=== PATIENT | male | born 1945 | race Caucasian/White ===

== ENCOUNTER → 2016-08-26 | Emergency (ER) | payer MEDICARE ==
[~2016-08-26] MED LIST: LOSARTAN POTASSIUM 25 MG TABLET PO ONE; amLODIPine BESYLATE 5 MG TABLET (FP) ONE; amLODIPine BESYLATE 5 MG TABLET (FP) PO ONE
--- NOTE | 2016-08-26 23:44 | PDOC ---
History of Present Illness - General History Source: Patient Exam Limitations: No Limitations - History of Present Illness Initial Comments: 08/26/16 23:51 The patient is a 71-year-old male, with a significant past medical history of HTN and hyperlipidemia, who presents to the ED with high blood pressure today. The patient states that he took his BP medication this morning and decided to take a second pill 2 hours prior to presentation since he does not have his prescription for amlodipine. Pt checked his BP and noted it to be high even after taking his medication so he decided to report to the ED for further evaluation. Pts BP was noted to be 194/111 while in the ED. He also reports having lasik surgery in his left eye today at 2 PM and he is now experiencing a mild headache. Pt also reports taking an aspirin and his hypertension medication tonight. On exam, pt does admit to be very gassy. He denies any chest pain or shortness of breath. He denies any fever, chills, nausea, vomiting, diarrhea, or abdominal pain. PCP: Dr. French <Yeny Mckee - Last Filed: 08/27/16 00:11> - General History Source: Patient, Old Records Exam Limitations: No Limitations <Madalyn Olivera - Last Filed: 08/27/16 01:16> - General Chief Complaint: Blood Pressure Problem Stated Complaint: HIGH BLOOD PRESSURE Time Seen by Provider: 08/26/16 23:35 Past History <Yeny Mckee - Last Filed: 08/27/16 00:11> - Past Medical History HTN: Yes Hypercholesterolemia: Yes - Psycho/Social/Smoking Cessation Hx Anxiety: No Suicidal Ideation: No Smoking History: Never smoked Have you smoked in the past 12 months: No Hx Alcohol Use: No Substance Use Type: None <Madalyn Olivera - Last Filed: 08/27/16 01:16> - Past Medical History Allergies/Adverse Reactions: Allergies Allergy/AdvReac Type Severity Reaction Status Date / Time No Known Allergies Allergy Verified 08/26/16 23:20 Home Medications: Ambulatory Orders Amlodipine Besylate 5 mg PO DAILY #30 tablet 08/27/16 Losartan Potassium 25 mg PO DAILY 08/27/16 Review of Systems - Review of Systems Able to Perform ROS?: Yes Comments:: 08/26/16 23:52 CONSTITUTIONAL: Absent: fever, chills, diaphoresis, generalized weakness, malaise, loss of appetite HEENT: Absent: rhinorrhea, nasal congestion, throat pain, throat swelling, difficulty swallowing, mouth swelling, ear pain, eye pain, visual Changes CARDIOVASCULAR: Absent: chest pain, syncope, palpitations, irregular heart rate, lightheadedness , peripheral edema RESPIRATORY: Absent: cough, shortness of breath, dyspnea with exertion, orthopnea, wheezing, stridor, hemoptysis GASTROINTESTINAL: Present: indigestion Absent: abdominal pain, abdominal distension, nausea, vomiting, diarrhea, constipation, melena, hematochezia GENITOURINARY: Absent: dysuria, frequency, urgency, hesitancy, hematuria, flank pain, genital pain MUSCULOSKELETAL: Absent: myalgia, arthralgia, joint swelling SKIN: Absent: rash, itching, pallor HEMATOLOGIC/IMMUNOLOGIC: Absent: easy bleeding, easy bruising, lymphadenopathy, frequent infections ENDOCRINE: Absent: unexplained weight gain, unexplained weight loss, heat intolerance, cold intolerance NEUROLOGIC: Present: headache Absent: focal weakness or paresthesias, dizziness, unsteady gait, seizure, mental status changes, bladder or bowel incontinence PSYCHIATRIC: Absent: anxiety, depression, suicidal or homicidal ideation, hallucinations. <Yeny Mckee - Last Filed: 08/27/16 00:11> *Physical Exam - Vital Signs Last Vital Signs Temp Pulse Resp BP Pulse Ox 97.7 F 63 18 194/111 98 08/26/16 23:17 08/26/16 23:17 08/26/16 23:17 08/26/16 23:17 08/26/16 23:17 - Physical Exam Comments: 08/26/16 23:54 GENERAL: Well developed, well nourished. Awake and alert. No acute distress. HEENT: +Scleral injection of left eye with a little inflammation of eyelid. Normocephalic, atraumatic. PERRLA, EOMI. No conjunctival pallor. Moist mucous membranes. Oropharynx is clear. NECK: Supple. Full ROM. No JVD. Carotid pulses 2+ and symmetric, without bruits. No thyromegaly. No lymphadenopathy. CARDIOVASCULAR: Regular rate and rhythm. No murmurs, rubs, or gallops. Distal pulses are 2+ and symmetric. PULMONARY: No evidence of respiratory distress. Lungs clear to auscultation bilaterally. No wheezing, rales or rhonchi. ABDOMINAL: Soft. Non-tender. Non-distended. No rebound or guarding. No organomegaly. Normoactive bowel sounds. MUSCULOSKELETAL Normal range of motion at all joints. No bony deformities or tenderness. No CVA tenderness. EXTREMITIES: No cyanosis. No clubbing. No edema. No calf tenderness. SKIN: Warm and dry. Normal capillary refill. No rashes. No jaundice. NEUROLOGICAL: Alert, awake, appropriate. PSYCHIATRIC: Cooperative. Good eye contact. Appropriate mood and affect. <Yeny Mckee - Last Filed: 08/27/16 00:11> - Vital Signs Last Vital Signs Temp Pulse Resp BP Pulse Ox 97.7 F 63 18 194/111 98 08/26/16 23:17 08/26/16 23:17 08/26/16 23:17 08/26/16 23:17 08/26/16 23:17 <Madalyn Olivera - Last Filed: 08/27/16 01:16> ED Treatment Course - LABORATORY CBC & Chemistry Diagram: 08/27/16 00:28 08/27/16 00:28 <Madalyn Olivera - Last Filed: 08/27/16 01:16> Medical Decision Making - Medical Decision Making 08/27/16 00:02 71-year-old male with history of hypertension and high cholesterol semi- compliant with medications as he ran out of his amlodipine weeks ago and has not refilled the prescription presents to the emergency Department with complaints of elevated blood pressure. His blood pressure is elevated at 194/ 111. The patient is asymptomatic. Differential diagnosis includes but is not limited to: Hypertensive urgency, uncontrolled hypertension secondary to medication noncompliance. Plan: 1. Labs 2. EKG 3. Amlodipine 5 mg in the ED 4. Observe and reevaluate 08/27/16 01:15 Addendum: All labs were reviewed and are noted in the EMR. EKG showed sinus bradycardia with no acute ST-segment changes. He received Norvasc 5mg PO x 1 in the ED and his repeat BP was 176/79. The plan is to discharge the patient home, follow-up with PCp within the next week and return to the ED if Sx persist, worsen or new Sx arise. <Madalyn Olivera - Last Filed: 08/27/16 01:16> *DC/Admit/Observation/Transfer - Attestations Scribe Attestion: 08/26/16 23:55 Documentation prepared by Yeny Mckee, acting as medical certification specialist for Madalyn Olivera MD. <Yeny Mckee - Last Filed: 08/27/16 00:11> - Discharge Dispostion Admit: No - Attestations Physician Attestion: 08/27/16 00:04 I, Dr. Madalyn Olivera, attest that the scribes documentation that appears above has been prepared under my direction and personally reviewed by me in its entirety. I confirmed that the note above accurately reflects all work, treatment, procedures, and medical decision-making performed by me. <Madalyn Olivera - Last Filed: 08/27/16 01:16> Diagnosis at time of Disposition: HTN (hypertension) - Discharge Dispostion Disposition: HOME Condition at time of disposition: Stable - Prescriptions Prescriptions: Amlodipine Besylate 5 mg PO DAILY #30 tablet - Referrals Referrals: Refugio French MD [Primary Care Provider] - - Patient Instructions Printed Discharge Instructions: DI for High Blood Pressure Additional Instructions: Please follow-up with your primary care physician within the next week. You are being prescribed Norvasc (blood pressure medicine) 5mg--one tablet daily. Please take that medication in addition to your prescribed losartan. Return to the ED as needed.
[2016-08-27 00:42] LABS: BASOPHIL 0.8 % (0-2.0); EOSINOPHIL 4.6 % (0-4.5); MCH 27.2 pg (25.7-33.7); MCHC 32.6 g/dl (32.0-35.9); MEAN CELL VOLUME 83.3 fl (80-96); MEAN PLT VOLUME 8.9 fl (7.5-11.1); NEUTROPHILS 51.4 % (42.8-82.8); PLATELET COUNT 163 K/MM3 (134-434); RDW 12.9 % (11.9-15.9); WHITE BLOOD COUNT 6.7 K/mm3 (4.0-10.0)
[2016-08-27 01:06] LABS: ANION GAP 7 (8-16); CALCIUM 8.9 mg/dL (8.5-10.1); CO2 30 mmol/L (21-32); CREATININE 1.2 mg/dL (0.7-1.3); GLUCOSE,RANDOM 122 mg/dL (74-106); MAGNESIUM 2.5 mg/dL (1.8-2.4); PHOSPHOROUS 2.8 mg/dL (2.5-4.9)
[2016-08-27 01:10] LABS: TROPONIN I < 0.02 ng/ml (0.00-0.05)
[2016-08-27 01:42] VITALS: BP 175/80; PULSE 56; TEMP 98
--- NOTE | 2016-08-27 13:47 | EKG ---
Test Reason : Blood Pressure : / mmHG Vent. Rate : 059 BPM Atrial Rate : 059 BPM P-R Int : 148 ms QRS Dur : 090 ms QT Int : 414 ms P-R-T Axes : 071 049 044 degrees QTc Int : 409 ms SINUS BRADYCARDIA OTHERWISE NORMAL ECG NO PREVIOUS ECGS AVAILABLE Confirmed by CHANTELL ANTUNEZ, COTY ([id number]) on 08/27/2016 1:47:23 PM Referred By: Confirmed By:COTY ABDUL MD
== END | disposition home or self-care (01) ==
LOC: JER 23:14
DX: I10 Essential (primary) hypertension (principal); E78.5 Hyperlipidemia, unspecified; Z91.14 Patient's other noncompliance with medication regimen
CPT/HCPCS: 36415; 80048; 82550; 83735; 84100; 84484; 85025; 93005; 93010; 99282-25

== ENCOUNTER 2017-01-06 22:30 | Emergency (ER) | payer MEDICARE ==
[2017-01-06 22:37] VITALS: BP 155/102; PULSE 87; TEMP 97.4; BMI 24.6
[2017-01-07] MEDS ORDERED: ACETAMINOPHEN 500 MG TABLET (FP) PO ONE (00:53)
--- NOTE | 2017-01-07 01:24 | PDOC ---
History of Present Illness - General Chief Complaint: Blood Pressure Problem Stated Complaint: EVALUATION Time Seen by Provider: 01/07/17 00:18 - History of Present Illness Initial Comments: 01/07/17 01:15 The patient is a 71 year old male with history of hypertension, hyperlipidemia, recent left Lasik eye surgery who presents to the ED complaining of 1 day of left sided headache. The patient describes his headache as intermittent, localized behind the left eye and forehead, ranked 8/10. It was gradual in onset , with no thunderclap. It is not the worst headache of his life. He states he experienced a similar headache in August, also after undergoing Lasik eye surgery. He noted his blood pressure was elevated to approximately 160/100 today , prompting him to come to the ED for evaluation. He states he is normally 130/ 90. No fever or chills. No numbness, tingling, or focal weakness. NO neck pain. No chest pain or shortness of breath. No nausea, vomiting, or diarrhea. Past History - Past Medical History Allergies/Adverse Reactions: Allergies Allergy/AdvReac Type Severity Reaction Status Date / Time No Known Allergies Allergy Verified 01/06/17 22:37 Home Medications: Ambulatory Orders Amlodipine Besylate 5 mg PO DAILY #30 tablet 08/27/16 Amlodipine Besylate 5 mg PO DAILY #30 tablet 08/27/16 Losartan Potassium 25 mg PO DAILY 08/27/16 COPD: No HTN: Yes Hypercholesterolemia: Yes Other medical history: left eye blindness - Suicide/Smoking/Psychosocial Hx Smoking History: Never smoked Have you smoked in the past 12 months: No Hx Alcohol Use: No Substance Use Type: None Review of Systems - Review of Systems Comments:: 01/07/17 01:29 "GENERAL/CONSTITUTIONAL: No fever or chills. No weakness. HEAD, EYES, EARS, NOSE AND THROAT: +L eye redness. No ear pain or discharge. No sore throat. CARDIOVASCULAR: No chest pain or shortness of breath. RESPIRATORY: No cough, wheezing, or hemoptysis. GASTROINTESTINAL: No nausea, vomiting, diarrhea or constipation. GENITOURINARY: No dysuria, frequency, or change in urination. MUSCULOSKELETAL: No joint or muscle swelling or pain. No neck or back pain. SKIN: No rash NEUROLOGIC: +L headache. No vertigo, loss of consciousness, or change in strength/sensation. ENDOCRINE: No increased thirst. No abnormal weight change. HEMATOLOGIC/LYMPHATIC: No anemia, easy bleeding, or history of blood clots. ALLERGIC/IMMUNOLOGIC: No hives or skin allergy. " *Physical Exam - Vital Signs Last Vital Signs Temp Pulse Resp BP Pulse Ox 97.4 F L 87 18 155/102 99 01/06/17 22:33 01/06/17 22:33 01/06/17 22:33 01/06/17 22:33 01/06/17 22:33 - Physical Exam Comments: 01/07/17 01:30 "GENERAL: Awake, alert, and fully oriented, in no acute distress HEAD: No signs of trauma EYES: OS with conjunctival injection, EOMI, no pain with EOM, visual acuity normal both eyes ENT: Auricles normal inspection, hearing grossly normal, nares patent, oropharynx clear without exudates. Moist mucosa NECK: Nontender, no stepoffs, Normal ROM, supple, no lymphadenopathy, JVD, or masses LUNGS: Breath sounds equal, clear to auscultation bilaterally. No wheezes, and no crackles HEART: Regular rate and rhythm, normal S1 and S2, no murmurs, rubs or gallops ABDOMEN: Soft, nontender, normoactive bowel sounds. No guarding, no rebound. No masses EXTREMITIES: Normal range of motion, no edema. No clubbing or cyanosis. No cords, erythema, or tenderness NEUROLOGICAL: Cranial nerves II through XII intact. 5/5 strength and sensation in all extremities, Normal speech, normal gait SKIN: Warm, Dry, normal turgor, no rashes or lesions noted. " ED Treatment Course - RADIOLOGY Radiology Studies Ordered: Category Date Time Status HEAD CT WITHOUT CONTRAST [CT] Stat CT Scan 01/07/17 00:53 Ordered Medical Decision Making - Medical Decision Making 01/07/17 01:30 71 M with L eye pain and headache after Lasik 2 days ago. Likely procedure- related, as pt had similar headache after getting Lasik on his other eye. Pt has injected conjunctiva but no hyphema, no cells/flare, no pain with EOMI, and normal visual acuity, making eye infection unlikely. Pt does not have any red flags for headache such as fevers, neck pain, thunderclap, or neuro deficits. - Tylenol - F/u ophtho 01/07/17 02:03 Pt reassessed s/p tylenol, now with complete resolution of headache. BP rechecked, now 130s systolic. Pt denies any complaints at this time. Clinically stable for DC. *DC/Admit/Observation/Transfer Diagnosis at time of Disposition: Headache - Discharge Dispostion Disposition: HOME - Referrals - Patient Instructions Printed Discharge Instructions: DI for High Blood Pressure Additional Instructions: Call your call center professional for an appointment within 2-3 days to have your eye looked at again. If you experience worsening headache, eye pain, blurred vision, or any other concerning symptoms, return to the ER immediately. - Post Discharge Activity - Attestations Physician Attestion: 01/07/17 01:37 I, Dr. Benigno Heredia MD, attest that this document has been prepared under my direction and personally reviewed by me in its entirety. I further attest, that it accurately reflects all work, treatment, procedures and medical decision -making performed by me.
== END 2017-01-07 02:33 | disposition home or self-care (01) ==
LOC: JER 22:30
DX: I10 Essential (primary) hypertension (principal); E78.00 Pure hypercholesterolemia, unspecified; H54.40 Blindness, one eye, unspecified eye
CPT/HCPCS: 99281-25

== ENCOUNTER 2017-01-07 16:50 | Emergency (ER) | payer MEDICARE ==
--- NOTE | 2017-01-07 17:04 | PDOC ---
History of Present Illness - General Stated Complaint: NAUSEA/VOMITING Time Seen by Provider: 01/07/17 17:03 - History of Present Illness Initial Comments: 01/07/17 17:08 Mr. Driscoll is a 71 yo male w/ pmh of htn, hld, long standing left sided facial droop and recent left lasik eye surgery who presents c/o 2 day of left sided headache. He says that it is behind the left eye and shoots into his forehead with 8/10 pain. He had this same pain in August also after Lasik surgery. He presented yesterday for this same presentation but reports that he began to vomit yesterday after he got home. He reports vomit today and no relief from pain with motrin 400 (last 2 hours ago). Headache was gradual in onset. Mr. Driscoll denies "worst headache of his life." The patient denies chest pain, shortness of breath, and dizziness. Denies fever , chills, diarrhea and constipation. Denies dysuria, frequency, urgency and hematuria. Allergies: NKDA Past History - Past Medical History Allergies/Adverse Reactions: Allergies Allergy/AdvReac Type Severity Reaction Status Date / Time No Known Allergies Allergy Verified 01/07/17 17:06 Home Medications: Ambulatory Orders Amlodipine Besylate 5 mg PO DAILY #30 tablet 08/27/16 Amlodipine Besylate 5 mg PO DAILY #30 tablet 08/27/16 Losartan Potassium 25 mg PO DAILY 08/27/16 COPD: No HTN: Yes Hypercholesterolemia: Yes - Suicide/Smoking/Psychosocial Hx Smoking History: Never smoked Have you smoked in the past 12 months: No Hx Alcohol Use: No Substance Use Type: None Review of Systems - Review of Systems Comments:: 01/07/17 17:27 GENERAL/CONSTITUTIONAL: No fever or chills. No weakness. HEAD, EYES, EARS, NOSE AND THROAT: +8/10 eye pain with associated headache. No ear pain or discharge. No sore throat. CARDIOVASCULAR: No chest pain or shortness of breath RESPIRATORY: No cough, wheezing, or hemoptysis. GASTROINTESTINAL: +Nausea with vomiting for the past day. NBNB. No diarrhea or constipation. GENITOURINARY: No dysuria, frequency, or change in urination. MUSCULOSKELETAL: No joint or muscle swelling or pain. No neck or back pain. SKIN: No rash NEUROLOGIC: +Headache centered on left eye and tracking back. No vertigo, loss of consciousness, or change in strength/sensation. ENDOCRINE: No increased thirst. No abnormal weight change HEMATOLOGIC/LYMPHATIC: No anemia, easy bleeding, or history of blood clots. ALLERGIC/IMMUNOLOGIC: No hives or skin allergy. 01/07/17 17:59 01/07/17 18:44 *Physical Exam - Physical Exam Comments: 01/07/17 17:28 GENERAL: Awake, alert, and fully oriented, in no acute distress HEAD: No signs of trauma, normocephalic, atraumatic EYES: +Left eye conjunctiva injected, left pupil sluggish to light. Left visual acuity able to appreciate light and movement currently only. ENT: Auricles normal inspection, hearing grossly normal, nares patent, oropharynx clear without exudates. Moist mucosa NECK: Normal ROM, supple, no lymphadenopathy, JVD, or masses LUNGS: No distress, speaks full sentences, clear to auscultation bilaterally HEART: Regular rate and rhythm, normal S1 and S2, no murmurs, rubs or gallops, peripheral pulses normal and equal bilaterally. ABDOMEN: Soft, nontender, normoactive bowel sounds. No guarding, no rebound. No masses EXTREMITIES: Normal inspection, Normal range of motion, no edema. No clubbing or cyanosis. NEUROLOGICAL: Cranial nerves II through XII grossly intact. Normal speech, normal gait, no focal sensorimotor deficits SKIN: Warm, Dry, normal turgor, no rashes or lesions noted. 01/07/17 18:45 Medical Decision Making - Medical Decision Making 01/07/17 17:12 71 M with L eye pain and continued headache after Lasik 3 days ago. Pt does not have any red flags for headache such as fevers, neck pain, thunderclap, or neuro deficits. 01/07/17 18:34 On further interview with patient, Mr. Driscoll relates that he has had poor vision out of his left eye for the past 8 months. He reports that this started getting worse 2 days ago and his vision has been getting worse as the days go on. Patient unable to differentiate Consulted on patient w/ Ophthalmology ( Michaelirryarelis) who will evaluate patient across street at [address] ([place] not available in ER at this time) and send back for further care.. Patient will be walked over to office by staff. *DC/Admit/Observation/Transfer Diagnosis at time of Disposition: Central retinal vein occlusion of left eye Glaucoma Qualifiers: Glaucoma type: unspecified Laterality: left Qualified Code(s): H40.9 - Unspecified glaucoma - Discharge Dispostion Disposition: HOME Condition at time of disposition: Stable - Referrals Referrals: Michael Rainey MD [Staff Physician] - - Patient Instructions Additional Instructions: You were seen in the ER for eye pain, nausea, and vomiting. You went to see Dr. Rainey with Ophthalmology and he prescribed you medications and gave you specific instructions for care. Please follow these instructions and take those medications. Follow up with him in office, or you can always return to the ER with any new or worsening symptoms like fever, severe pain you cannot control with medications, vomiting that will not subside, or other symptoms. - Post Discharge Activity
[2017-01-07 17:14] VITALS: TEMP 97.9; BMI 24.6
--- NOTE | 2017-01-07 17:30 | PDOC ---
Attending Attestation - HPI HPI: 01/07/17 17:50 The patient is a 71 year old male with a significant past medical history of hypertension, hyperlipidemia, and recent left lasik eye surgery (5 days ago) who presents to the ED with headache 3 days ago. The patient reports a gradual onset of left side eye pain around his left eye, radiating to the back of his head 3 days ago. He describes his headache a 10/10 in severity. Patient was seen in the ED last night and was treated with tylenol and discharged home. At home, patient reports multiple episodes of nonbilious nonbloody vomiting and increased blood pressure. Denies fever or chills. Denies neck pain or back pain. Denies diarrhea. Denies chest pain or shortness of breath. Denies any other symptoms. ROS: A complete review of 10 out of 10 review of systems is taken and is negative apart from what is previously mentioned below and in the HPI. - Physicial Exam PE: 01/07/17 17:50 Vitals: Triage Vital signs reviewed General Appearance: no acute distress, well nourished well developed Head: Atraumatic Eyes: + left eye: red injected cornea, pupil is fixed and sluggish, extraocular movement intact. Neck: Supple; No Nucal rigidity Chest Wall: Nontender Cardiac: Regular rate and rhythm, no murmurs, no rubs, no gallops Lungs: Clear to auscultation bilateral, good air movement bilaterally Abdomen: Soft, nondistended, normal bowel sounds, nontender to palpation Extremities: Full range of motion to all extremities, no cyanosis, clubbing, or edema Skin: Warm and dry, no rashes or lesions, no rash, no petechiae Neuro: AOX3; Cranial Nerves 2-12 grossly intact, Strength intact to all extremities, Sensation intact to all extremities. Psych: Normal mood, normal affect - Medical Decision Making 01/07/17 17:50 Documentation prepared by Jordy Gonzalez, acting as medical office rep for Zelalem Valdes MD 01/07/17 18:30 Patient's results will be followed up by Dr. Agustin. <Jordy Gonzalez - Last Filed: 01/07/17 18:30> - Resident Resident Name: Irineo Colon - ED Attending Attestation I have performed the following: I have examined & evaluated the patient, The case was reviewed & discussed with the resident, I agree w/resident's findings & plan, Exceptions are as noted - Medical Decision Making On eye examination patient only able to see movement and light. Patient states that his eye has been like this for the last 2-3 days. Normally over the last 8 months patient has had very poor vision out of this eye Given the possibility of angle-closure glaucoma given that the patient has an injected conjunctiva with a nonreactive pupil and headache nausea vomiting ophthalmology emergently consult. Unable to obtain intraocular pressure in the emergency department secondary to lack of Marcial-Pen en route to hospital. We'll examine patient in his office across the street from hospital. Based on exam findings will dispo. Diamox 500 mg given prior to transfer across the street. Dr. Agustin to follow up plan based on opho findings. <Zelalem Valdes - Last Filed: 01/07/17 18:49>
--- NOTE | 2017-01-07 20:13 | PDOC ---
*Physical Exam - Vital Signs Received signout on Mr. Driscoll from Dr. Colon. Patient is a 71 YOM who reports recent Lasix surgery last week, presented with eye pain last LOC, discharged after evaluation and resolution of the pain in the ED, but then had a reocurrence at home along with nausea and vomiting. Given Dimox and sent for evaluation by Dr. Rainey while still registered with ED during his visit. Awaiting results of Dr. Rainey's exam and recommendations. Last Vital Signs Temp Pulse Resp BP Pulse Ox 97.9 F 70 18 132/100 100 01/07/17 17:07 01/07/17 17:07 01/07/17 17:07 01/07/17 17:07 01/07/17 17:07 ED Treatment Course - Medications Given in the ED: ED Medications Discontinued Medications Generic Name Dose Route Start Last Admin Trade Name Freq PRN Reason Stop Dose Admin Acetazolamide Sodium 500 mg 01/07/17 18:39 01/07/17 19:05 Diamox Injection - IVPUSH 01/07/17 18:40 500 mg ONCE ONE Administration Medical Decision Making - Medical Decision Making Spoke with Dr. Rainey after patient's H&P by him in his office. Dr. Rainey handled prescriptions as per his recommendations to the patient. States the patient can be discharged home and gives official diagnoses. Return precautions are discussed and the patient will follow up with Ophtho. *DC/Admit/Observation/Transfer Diagnosis at time of Disposition: Central retinal vein occlusion of left eye Glaucoma Qualifiers: Glaucoma type: unspecified Laterality: left Qualified Code(s): H40.9 - Unspecified glaucoma - Discharge Dispostion Disposition: HOME Condition at time of disposition: Stable Admit: No - Referrals Referrals: Michael Rainey MD [Staff Physician] - - Patient Instructions Additional Instructions: You were seen in the ER for eye pain, nausea, and vomiting. You went to see Dr. Rainey with Ophthalmology and he prescribed you medications and gave you specific instructions for care. Please follow these instructions and take those medications. Follow up with him in office, or you can always return to the ER with any new or worsening symptoms like fever, severe pain you cannot control with medications, vomiting that will not subside, or other symptoms. - Post Discharge Activity
[2017-01-07 20:22] VITALS: BP 144/84; PULSE 69
== END 2017-01-07 20:38 | disposition home or self-care (01) ==
LOC: JER 16:50
PROC: 3E033GC Introduction of Other Therapeutic Substance into Peripheral Vein, Percutaneous Approach (ICD-10-PCS; principal; 2017-01-07)
DX: H34.8120 Central retinal vein occlusion, left eye, with macular edema (principal); H40.9 Unspecified glaucoma
CPT/HCPCS: 96374; 99282-25

== ENCOUNTER 2018-03-23 11:39 | Emergency (ER) | payer MEDICARE, OTHER ==
[2018-03-23 11:46] VITALS: BP 134/81; PULSE 59; TEMP 98; BMI 24.6
--- NOTE | 2018-03-23 12:37 | PDOC ---
History of Present Illness - General Chief Complaint: Rash Stated Complaint: SIDE / BACK PAIN Time Seen by Provider: 03/23/18 12:12 History Source: Patient Exam Limitations: No Limitations - History of Present Illness Initial Comments: 03/23/18 12:50 Using Nepalese interpretation phone, patient here for evaluation of left flank/ chest wall rash that's painful for approximately 3 days. States onset was a tingling in the noticed irruption of fluid-filled blisters to his anterior chest wall at approximately rib 09/20/2009/T8 dermatome has now extended to around his back. Is unilateral to the left side only and painful. Severity: Yes: mild, moderate Location: reports: torso (to left flank) Associated Symptoms: reports: blisters, headache. denies: fever Past History - Travel Traveled outside of the country in the last 30 days: No Close contact w/someone who was outside of country & ill: No - Past Medical History Allergies/Adverse Reactions: Allergies Allergy/AdvReac Type Severity Reaction Status Date / Time No Known Allergies Allergy Verified 03/23/18 11:46 Home Medications: Ambulatory Orders Amlodipine Besylate 5 mg PO DAILY #30 tablet 08/27/16 Amlodipine Besylate 5 mg PO DAILY #30 tablet 08/27/16 Losartan Potassium 25 mg PO DAILY 08/27/16 Acetaminophen W/ Codeine #3 [Tylenol # 3] 1 combo PO Q4H PRN #10 tablet MDD 4 Valacyclovir HCl [Valtrex] 1,000 mg PO TID #21 tablet 03/23/18 COPD: No HTN: Yes Hypercholesterolemia: Yes - Suicide/Smoking/Psychosocial Hx Smoking History: Never smoked Have you smoked in the past 12 months: No Hx Alcohol Use: No Substance Use Type: None Review of Systems - Review of Systems Able to Perform ROS?: Yes Is the patient limited Uzbek proficient: Yes Constitutional: Yes: Symptoms Reported, See HPI, Malaise. No: Fever, Loss of Appetite HEENTM: No: Symptoms Reported Respiratory: Yes: Symptoms reported, See HPI. No: Cough : No: Symptoms Reported Integumentary: Yes: Symptoms Reported, See HPI, Lesions, Rash Neurological: Yes: Symptoms reported, See HPI, Tingling All Other Systems: Reviewed and Negative *Physical Exam - Vital Signs Last Vital Signs Temp Pulse Resp BP Pulse Ox 98 F 59 L 18 134/81 98 02/09/19 11:43 03/23/18 11:43 03/23/18 11:43 03/23/18 11:43 03/23/18 11:43 - Physical Exam General Appearance: Yes: Nourished, Appropriately Dressed, Apparent Distress, Mild Distress HEENT: positive: SARA, Normal ENT Inspection, Normal Voice, TMs Normal, Pharynx Normal Neck: positive: Supple. negative: Tender Respiratory/Chest: positive: Lungs Clear, Normal Breath Sounds, Other ( erythematous base with discrete lesions noted on left chest wall lower and extending around to back, all consistent with appearance of shingles eruption) Gastrointestinal/Abdominal: positive: Soft. negative: Tender Musculoskeletal: positive: Normal Inspection Extremity: positive: Normal Capillary Refill, Normal Inspection, Normal Range of Motion Integumentary: positive: Normal Color, Rash Neurologic: positive: rehabilitation tech II-XII NML intact, Fully Oriented, Alert, Normal Mood/ Affect, Normal Response, Motor Strength 5/5 Moderate Sedation - Procedure Monitoring Vital Signs: Procedure Monitoring Vital Signs Temperature 98 F 03/23/18 11:43 Pulse Rate 59 L 03/23/18 11:43 Respiratory Rate 18 03/23/18 11:43 Blood Pressure 134/81 03/23/18 11:43 O2 Sat by Pulse Oximetry (%) 98 03/23/18 11:43 Progress Note - Progress Note Progress Note: Shingles outbreak, will treat with Valtrex and given 10 tablets of Tylenol No. 3 *DC/Admit/Observation/Transfer Diagnosis at time of Disposition: Shingles rash Qualifiers: Herpes zoster complications: without complications Qualified Code(s): B02.9 - Zoster without complications - Discharge Dispostion Disposition: HOME Condition at time of disposition: Stable Decision to Admit order: No - Prescriptions Prescriptions: Valacyclovir HCl [Valtrex] 1,000 mg PO TID #21 tablet - Referrals Referrals: ON STAFF,NOT [Primary Care Provider] - - Patient Instructions Printed Discharge Instructions: DI for Shingles Additional Instructions: Rest, keep cool and dry- avoid strenuous activity or hot /humid environments Remember to isolate self 4 people who are very old, immunosuppressed like cancer patients or HIV patients, women, or very young until all lesions are scabbed Less hot showers, no abrasive soaps May use heavy creams like Eucerin or Cetaphil to keep skin moist May apply Aveeno, calamine lotion, [id number] hydrocortisone creams as needed for symptoms May use Benadryl at night for antihistamine, Zyrtec/ Delmy or Claritin for daytime antihistamine use to help with itching May use Tylenol No. 3 for stronger pain relief, remembering may make dizzy and sleepy Valtrex, 1 g tablet every 8 hours for one week Followup with PMD in one week if no resolution Make appointment with riveting machine operator tape control for evaluation when possible - Post Discharge Activity
== END 2018-03-23 12:48 | disposition home or self-care (01) ==
LOC: JERFT 11:39
DX: B02.9 Zoster without complications (principal); I10 Essential (primary) hypertension; E78.00 Pure hypercholesterolemia, unspecified
CPT/HCPCS: 99281-25